=== PATIENT | female | born 1945 | race Caucasian/White ===

== ENCOUNTER → 2017-03-10 | Outpatient (CLI) | payer OTHER ==
--- NOTE | 2017-03-10 13:05 | RAD ---
Indication: Right breast mass. Procedure: The procedure, its risks and benefits, and potential complications were discussed with the patient. All questions were answered. Written consent to proceed was obtained. Timeout procedure was performed. Patient was prepped and draped in the usual manner. 1% lidocaine was administered locally. Under direct ultrasound visualization with an image documenting each needle pass toward, a 14-gauge biopsy needle was positioned into the mass at the 12:00 position. 7 samples were obtained. At the end of the procedure, marker was deployed and post procedure mammogram obtained to confirm positioning of the marker. The patient tolerated the procedure well. There were no immediate complications. Await pathology results. Impression: Ultrasound-guided right breast mass biopsy with marker deployment.
--- NOTE | 2017-03-11 11:37 | RAD ---
DATE: March 10, 2017 EXAM: DIGITAL DIAGNOSTIC RT HISTORY: Post ultrasound-guided biopsy. Marker placement. COMPARISON: February 24, 2017 TECHNIQUE: CC and MLO views were obtained. This study was interpreted with the benefit of Computerized Aided Detection (CAD). FINDINGS: The breast parenchyma is heterogeneously dense, category C, which may obscure small masses. Marker is deployed along the medial aspect of the right breast mass at the 12:00 position. No significant post procedure hematoma is apparent. Remainder of the study is stable. IMPRESSION: Biopsy marker is in position. PQRS compliance statement: Patient information was entered into a reminder system with a target due date for the next mammogram. Mammography is a sensitive method for finding small breast cancers, but it does not detect them all and is not a substitute for careful clinical examination. A negative mammogram does not negate a clinically suspicious finding and should not result in delay in biopsying a clinically suspicious abnormality. "Our facility is accredited by the [employer] Mammography Program."
--- NOTE | 2017-03-11 16:48 | PATHOLOGY ---
PATHOLOGY REPORT * * * * * * * * FINAL DIAGNOSIS: Breast tissue, right breast mass at 12:00, needle biopsy: - Infiltrating ductal carcinoma, Grade 1. See comment. COMMENT: Sections of the right breast mass at 12:00 needle biopsy reveal an invasive mammary carcinoma. The tumor shows good tubule formation, [id number] nuclear atypia, and mild mitotic activity. 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 The invasive carcinoma measures up to 0.8 cm in greatest dimension on the glass slide. There are a few calcifications associated with DCIS and benign breast tissue. There is no lymphovascular tumor invasion. The case is also examined by Dr. Trimble, who concurs with the diagnosis. Breast prognostic studies will be obtained, the results of which will be reported separately. (JPM:[place]; 03/11/2017) REPORT ELECTRONICALLY SIGNED BY: Duran Hatch M.D. DATE/TIME: 03/11/2017 16:48 * * * * * * * * GROSS PATHOLOGY: Received in formalin labeled "Irlanda Fernando, right breast 12:00," are multiple needle cores of yellow-medina fibrofatty tissue measuring 2.0 x 0.7 x 0.2 cm in aggregate dimensions. The tissue is submitted in its entirety in cassette A1 through A3. The cold ischemic time is 3 minutes. The total formalin fixation time is 12 hours and 37 minutes. (TSD; 03/10/2017) INITIAL CPT CODE(S): A; 63255, 61450(4) Professional services performed by [facility] [address] Technical services performed by [facility] at [address] [place] [address]. SPECIMEN(S) RECEIVED: A.Right breast mass @ 1200 CLINICAL HISTORY: Right breast mass @ 1200 PATIENT: IRLANDA FERNANDO /AGE: 306/18/1945 (Age: 71) PATIENT #: [id number] ALT CASE #: SPECIMEN COLLECTION DATE: 03/10/2017 SPECIMEN RECEIVED DATE: 03/10/2017 [facility] - [id number] [place] [address] - PHONE: [phone] * * * END OF REPORT * * *
== END | disposition home or self-care (01) ==
LOC: US 08:15
PROVIDERS: ATTEND Surgery
DX: N63.10 Unspecified lump in the right breast, unspecified quadrant (principal)
CPT/HCPCS: 76942; C1713; G0206; 77065